=== PATIENT | female | born 1960 | race Caucasian/White ===

== ENCOUNTER 2021-07-06 19:45 | Inpatient (IN) | payer OTHER, SELFPAY ==
[2021-07-06] MEDS ORDERED: NA CHLORIDE 0.9% 2,000 ML ONE (20:14)
[2021-07-06] MEDS ORDERED: ONDANSETRON 4 MG/2 ML VIAL ONE (20:19)
[2021-07-06 20:43] LABS: Urine Blood 2+ (Negative); Urine Glucose Negative (Negative); Urine Protein 1+ (Negative); Urine Specific Gravity >=1.030 (1.005-1.030); Urine pH 5.5 (5.0-7.0)
[2021-07-06 20:43] LABS: Protime INR 0.94
[2021-07-06 20:44] LABS: Absolute Lymphocytes (CBC) 1.6 K/uL (0.7-4.9); Hematocrit 40.7 % (36.0-45.0); Lymphocytes % 24.1 % (15.3-44.8); MPV 10.7 fL (7.6-11.3); RBC Red Blood Cell Count 4.53 M/uL (3.86-4.86)
[2021-07-06 21:14] LABS: ALT/SGPT 31 U/L (12-78); AST/SGOT 57 U/L (15-37); Albumin 3.5 g/dL (3.4-5.0); Alkaline Phosphatase 121 U/L (45-117); Amylase 43 U/L (25-115); Bicarbonate 22 mmol/L (21-32); Bilirubin Direct < 0.1 mg/dL (0-0.2); Bilirubin Total 0.2 mg/dL (0.2-1.0); Creatine Phosphokinase 44 U/L (26-192); Glucose Level 181 mg/dL (74-106); Lipase 113 U/L (73-393); Potassium 3.4 mmol/L (3.5-5.1); Protein, Total 7.1 g/dL (6.4-8.2); Sodium Level 138 mmol/L (136-145); Troponin (Emerg Dept Use Only) < 0.02 ng/mL (0.0-0.045)
[2021-07-06 21:16] LABS: Urine Bacteria >50 /HPF (<20)
[2021-07-06 21:18] LABS: SARS-COV-2 RT PCR POSITIVE (NEGATIVE)
--- NOTE | 2021-07-06 21:19 | RAD REPORT ---
EXAM DESCRIPTION: RAD - Chest Single View - 07/06/2021 8:48 pm CLINICAL HISTORY: FEVER Chest pain. COMPARISON: No comparisons FINDINGS: Portable technique limits examination quality. Interstitial opacities are present, greater on the left, suspicious for a viral infection. The heart is upper limit of normal in size. No displaced fractures.
[2021-07-06 21:22] LABS: CKMB Creatine Kinase MB < 1.0 ng/mL (1.0-3.6)
--- NOTE | 2021-07-06 21:24 | RAD REPORT ---
EXAM DESCRIPTION: CT - Chest Angio - 07/06/2021 9:07 pm CLINICAL HISTORY: Chest pain. abd. pain;Chest pain COMPARISON: No comparisons TECHNIQUE: CT angiogram of the pulmonary arteries was performed with MIP. All CT scans are performed using dose optimization technique as appropriate and may include automated exposure control or mA/KV adjustment according to patient size. FINDINGS: No evidence of pulmonary thromboembolism. No acute aortic finding demonstrated. Mild interstitial pulmonary edema suspected. No significant pericardial or pleural fluid. No concerning bony finding. IMPRESSION: No evidence of pulmonary thromboembolism. Mild interstitial pulmonary edema suspected.
--- NOTE | 2021-07-06 21:29 | RAD REPORT ---
EXAM DESCRIPTION: CTAbdomen Pelvis W Contrast - 07/06/2021 9:07 pm CLINICAL HISTORY: Abdominal pain. ABD PAIN COMPARISON: No comparisons TECHNIQUE: Biphasic CT imaging of the abdomen and pelvis was performed with 100 ml non-ionic IV cont rast. All CT scans are performed using dose optimization technique as appropriate and may include automated exposure control or mA/KV adjustment according to patient size. FINDINGS: The lung bases are clear. The liver appears unremarkable without mass or biliary dilatation. There is slightly dense fluid seen in the left upper quadrant adjacent to the stomach, medial margin of the spleen superior to the pancreas. This extends inferiorly along the inferior anterior pararenal fascia and along the left pericolic gutter. Mild fluid is seen in the pelvis. The findings may be re lated to pancreatitis given the location. The spleen, adrenal glands kidneys show no acute process. No bowel obstruction, free air or abscess. Normal appendix. No suspicious bony findings. IMPRESSION: Acute pancreatitis is a possibility. Recommend correlation with amylase and lipase level s. Slightly dense fluid is seen predominately in the left upper quadrant extending inferiorly as detaile d above.
[2021-07-06 22:16] LABS: BUN Blood Urea Nitrogen 16 mg/dL (7-18)
[2021-07-06] MEDS ORDERED: POTASSIUM CL SA 10 MEQ TAB PO ONE (22:31)
[2021-07-06] MEDS ORDERED: NA CHLORIDE 0.9% 1,000 ML ONE (22:45)
[2021-07-06] MEDS ORDERED: KCL 20 MEQ/100 mL IVPB 100 ML IV ONE (22:46)
[2021-07-06] MEDS ORDERED: NA CHLORIDE 0.9% 100 ML ONE (23:09)
[2021-07-06] MEDS ORDERED: PIPERACIL/TAZO 3.375 GM VIAL IV ONE (23:09)
[2021-07-06 23:41] LABS: Absolute Lymphocytes (CBC) 0.5 K/uL (0.7-4.9); Hematocrit 34.8 % (36.0-45.0); Lymphocytes % 7.8 % (15.3-44.8); RBC Red Blood Cell Count 3.83 M/uL (3.86-4.86)
[2021-07-07] MEDS ORDERED: KETOROLAC 30 MG/ML INJ ONE (00:30)
--- NOTE | 2021-07-07 01:31 | CON ---
Date of Consultation: 07/06/2021 Reason For Consultation: Abdominal pain. History Of Present Illness: The patient is a 60-year-old female, who presents to the emergency room earlier today with acute onset of epigastric left upper quadrant pain. She states that it felt like something burst. She denies any nausea, vomiting, diarrhea, or constipation. No blood in her stool. No dysuria or hematuria. No sore throat. She does have a cough. No chest pain per se. She has h ad fever for a couple of days and she has been around the [email or web address] during the holidays and she was f ound to be COVID positive on admission. Her blood pressure dropped to systolic in the 70s and I was called to come and evaluate the patient. On arrival, the patient is awake, alert, not in any extreme distress at this time. Vital at this point are normal blood pressure. Her heart rate, there is no tachycardia, there is no hypertension. Sats are okay. She is able to communicate well. She is awak e, alert, and oriented x3. Review of Systems: Otherwise unremarkable. Past Medical History: Negative. Past Surgical History: Negative. Allergies: NO ALLERGIES. Social History: She denies smoking or drinking. She does state that she has been drinking some appl e cider over the holidays. Family History: Noncontributory. Physical Examination: Vital Signs: Her vitals currently are stable. She is afebrile. She is awake, alert, and oriented x 3. Head and Neck: Cranial nerves 2 through 12 grossly within normal limits. No neck masses. No JVD. Throat clear. Neck is supple. Chest: Clear. Heart: S1 and S2. Abdomen: Soft. There is tenderness in the left upper quadrant greater than left middle quadrant. T here is no rebound, rigidity, or guarding at this point. There is no distention. Extremity: Adequate perfusion, nontender. Neuro: Nonfocal. Laboratory Data: White count 6.5, H and H was 13.8 at 8 o'clock; at 11:35, it was 11.6 and 34.8 and she has received a couple units of fluids. Her neutrophil shift was normal on admission, is currentl y 85.7. INR is 0.94. Chemistry shows glucose of 181, AST of 57, alkaline phosphatase of 121, lactic acid of 1.7, and procalcitonin of 0.15. She had a chest x-ray, which shows interstitial opacities are present, greater on the left suspicious for viral infection. The heart is upper limits of normal in size. No displaced fracture. She also had a CT of the chest, abdomen, and pelvis. There is no dissection present. Description Of The Operative Report: In the description of the operative report and also talking to Dr. Alatorre, there is slight dense fluid seen in the left upper quadrant, not like bladder, but adjacen t to the stomach, medial margin of the spleen and superior to the pancreas and extends inferiorly chino ng the inferior and anterior pararenal fascia and along the left pericolic gutter and mild fluid is s een in the pelvis. These findings may be related to pancreatitis given the location. The spleen, ad renal glands, kidneys showed no acute process, no bowel obstruction, free air, or abscess. Normal ap pendix. The etiology of this fluid is unclear, but based on the clinical history, I suspect either a pancreatic cyst that may be leaking or a pseudocyst, I do not think there is bleeding from the splee n nor is there gastric perforation based on the clinical findings. Assessment: Abdominal pain, etiology is unclear at this time. Recommendations: We will continue to try to transfer this patient to a tertiary care facility; [facility], at this time beds are very limited, so therefore we will support her with fluids. We will repeat the labs, do serial abdominal exams, and if we cannot transfer this patient to tertiary care, then s he may benefit from a diagnostic laparoscopy and aspiration of the fluid to see what is causing this problem and then appropriately treat this patient. Plan of care was discussed in detail with Dr. Arenas as well as the patient and her family member. /MODL Voice ID: [id number] Report ID: [id number]
[2021-07-07] MEDS ORDERED: NA CHLORIDE 0.9% 1,000 ML ONE ×2 (01:44→17:36)
--- NOTE | 2021-07-07 02:05 | ER ---
Nurse's Notes [facility] Name: Shanna Alonzo Age: 60 yrs Sex: Female : 1960 Arrival Date: 07/06/2021 Time: 20:01 Bed 8 Private MD: Diagnosis: Covid 19 pneumonia. Fever. Acute abdominal pain. Fluids in abdominal Presentation: 07/06 20:49 Chief complaint: EMS states: called out for covid symptoms, upon arrival pt was as6 diaphoretic, lethargic, syncopal episode. Coronavirus screen: Vaccine status: Patient reports being unvaccinated. Client presents with at least one sign or symptom that may indicate coronavirus-19. Standard/surgical mask placed on the client. Ebola Screen: No symptoms or risks identified at this time. Initial Sepsis Screen: Does the patient meet any 2 criteria? RR > 20 per min. Temp <36.0*C (96.8*F)) or > 38.3*C (100.9*F). Does the patient have a suspected source of infection? No. Patient's initial sepsis screen is negative. Risk Assessment: Do you want to hurt yourself or someone else? Patient reports no desire to harm self or others. Onset of symptoms was July 03, 2021. 20:49 Method Of Arrival: EMS: [facility] as6 20:49 Acuity: GI 2 as6 Historical: - Allergies: 20:53 Codeine; as6 - Home Meds: 20:53 None [Active]; as6 - PMHx: 20:53 None; as6 - PSHx: 20:53 None; as6 - Immunization history:: Adult Immunizations not up to date. - Social history:: Smoking status: Patient denies any tobacco usage or history of. Screenin:19 Abuse screen: Denies threats or abuse. Denies injuries from another. Nutritional as6 screening: No deficits noted. Tuberculosis screening: No symptoms or risk factors identified. Fall Risk None identified. Assessment: 20:00 General: Appears ill, Behavior is drowsy. General: Reports chills for feeling ill for as6 fatigue for. Pain: Complains of pain in generalized body achaes. Neuro: Level of Consciousness is lethargic, Oriented to person, place, time, situation. Derm: Skin is clammy, diaphoretic, Skin is dusky, pale, Skin temperature is cool. 21:28 Reassessment: Patient and/or family updated on plan of care and expected duration. Pain as6 level reassessed. General: pt reports feeling cold, "I just don't feel good". 23:04 General: Appears uncomfortable, pt denies wanting any pain medication . as6 23:16 General: pt c/o feeling hot, blood pressure 63/54, Dr. Arenas notified . as6 07/07 00:00 GI: Abdomen has rebound tenderness in left upper quadrant and left lower quadrant. as6 00:56 General: pt resting, family at bedside . as6 Vital Signs: 07/06 20:09 BP 105 / 68; Pulse 63; Resp 16 S; Temp 97.6(O); Pulse Ox 96% on R/A; Weight 70.31 kg as6 (R); Height 4 ft. 11 in. (149.86 cm) (R); 21:18 BP 115 / 64; Pulse 69; Resp 24 S; Temp 97.1(C); Pulse Ox 100% on R/A; as6 22:20 BP 97 / 65; Pulse 78; Resp 24 S; Temp 97.7(C); Pulse Ox 98% on R/A; as6 23:16 BP 63 / 54; Pulse 62; Resp 27 S; Temp 98.2(C); Pulse Ox 98% on R/A; as6 23:40 BP 113 / 71; Pulse 71; Resp 21 S; Temp 98.6(C); Pulse Ox 99% on R/A; as6 07/07 00:55 BP 120 / 79; Pulse 72; Resp 22 S; Temp 99.0(C); Pulse Ox 98% on R/A; as6 02:35 BP 114 / 78; Pulse 85; Resp 20 S; Temp 99.1(C); Pulse Ox 98% on R/A; as6 07/06 20:09 Body Mass Index 31.31 (70.31 kg, 149.86 cm) as6 ED Course: 07/06 20:01 Patient arrived in ED. tracee 20:05 Reno Arenas MD is Attending Physician. pkl 20:06 Rodrigo Colon, NIC is Primary Nurse. as6 20:46 Blood Culture Sent. tracee 20:47 Amylase Sent. tracee 20:47 Basic Metabolic Panel Sent. tracee 20:47 Amylase, Serum Sent. tracee 20:47 Basic Metabolic Panel Sent. tracee 20:47 Blood Culture Adult (2) Sent. tracee 20:47 CBC with Diff Sent. tracee 20:47 CPK Sent. tracee 20:47 Ckmb Sent. tracee 20:47 LFT's Sent. tracee 20:47 Lipase Sent. tracee 20:47 Procalcitonin Sent. tracee 20:47 Troponin (emerg Dept Use Only) Sent. tracee 20:48 Chest Single View XRAY In Process Unspecified. EDMS 20:48 Urine Microscopic Only Sent. tracee 20:48 COVID-19/FLU A+B/RSV (Document "Date of Onset" if Symptomatic) Sent. tracee 20:52 Triage completed. as6 20:52 Arm band placed on. as6 21:05 Inserted saline lock: 18 gauge in right antecubital area, using aseptic technique. as6 Blood collected. Inserted saline lock: 18 gauge in left hand, using aseptic technique. Blood collected. 21:06 CT Abd/Pelvis - IV Contrast Only In Process Unspecified. EDMS 21:06 Tamayo cath inserted, using sterile technique, 16 Fr., by nm, balloon inflated, to as6 gravity drainage, urine specimen collected. Thermoregulation: warm blanket given to patient. heating blanket applied. 21:07 CT Chest Angio In Process Unspecified. EDMS 21:28 Placed in gown. Bed in low position. Call light in reach. Side rails up X2. Adult w/ as6 patient. library monitor on. Pulse ox on. NIBP on. Warm blanket given. 23:05 US Abdomen Limited In Process Unspecified. EDMS 07/07 01:16 Type And Screen Sent. tracee 01:[address] [facility] for transfer denial due to at capacity. Called [facility] denial due to cs9 at capacity. Called [facility] we were denied due to at [place]. 01:45 called [facility] denied due to at capacity. cs9 01:55 called [facility] denied due to at capacity. cs9 02:01 Aguila Roberts is Hospitalizing Provider. pkl 02:36 No provider procedures requiring assistance completed. Patient admitted, IV remains in as6 place. 07:37 Primary Nurse role handed off by Rodrigo Colon RN jl7 08:10 Anthony Bennett, RN is Primary Nurse. bp 12:28 Attending Physician role handed off by Reno Arenas MD jl7 12:28 Primary Nurse role handed off by Anthony Bennett RN jl7 12:29 Edu Duong, NIC is Primary Nurse. jl7 12:40 Primary Nurse role handed off by Edu Duong RN bp 12:40 Anthony Bennett, NIC is Primary Nurse. bp Administered Medications: 07/06 20:16 Drug: NS 0.9% (30 ml/kg) 30 ml/kg Route: IV; Rate: bolus; Site: right antecubital; as6 22:51 Follow up: Response: No adverse reaction; IV Status: Completed infusion; IV Intake: as6 2100ml 20:54 Not Given (Patient Refused): Zofran (Ondansetron) 4 mg IVP once; over 2 minutes as6 22:42 Not Given (Physician Discretion): K-Dur (potassium chloride) 20 mEq PO once as6 23:04 Drug: NS 0.9% 1000 ml Route: IV; Rate: 125 ml/hr; Site: right antecubital; as6 23:04 Drug: Potassium Chloride 10 mEq Route: IV; Rate: calculated rate; Site: right as6 antecubital; 23:30 Drug: Zosyn (piperacillin-tazobactam) 3.375 grams Route: IVPB; Infused Over: 60 mins; as6 Site: left hand; 07/07 00:40 Drug: Ketorolac 30 mg Route: IVP; Site: right antecubital; as6 Intake: 07/06 22:51 IV: 2100ml; Total: 2100ml. as6 Outcome: 07/07 02:04 Decision to Hospitalize by Provider. pkl 02:36 Admitted to ICU as6 02:36 Condition: stable 11:25 Patient left the ED. jl7 18:54 Patient left the ED. bp Signatures: Dispatcher [employer] EDMS Reno Arenas MD MD pkEdu Gallo, NIC LUCERO jl7 Anthony Bennett, RN NIC Martha Palacio 9 Rodrigo Colon, RN NIC as6 Chelsea Priest RN RN tracee
--- NOTE | 2021-07-07 02:05 | EDPHYS ---
[facility] Name: Shanna Alonzo Age: 60 yrs Sex: Female : 1960 Arrival Date: 07/06/2021 Time: 20:01 Bed 8 Private MD: ED Physician HPI: 07/06 20:13 This 60 yrs old Female presents to ER via Unassigned with complaints of Fever, Abd Pain pkl > 50 y/o. 20:13 The patient presents with abdominal pain that is diffuse. Onset: The symptoms/episode pkl began/occurred just prior to arrival, sudden onset. The symptoms do not radiate. Associated signs and symptoms: Pertinent positives: near syncope. The patient reports fever, with an emergency department temperature of 97.6 degrees Fahrenheit. Historical: - Allergies: 20:53 Codeine; as6 - Home Meds: 20:53 None [Active]; as6 - PMHx: 20:53 None; as6 - PSHx: 20:53 None; as6 - Immunization history:: Adult Immunizations not up to date. - Social history:: Smoking status: Patient denies any tobacco usage or history of. ROS: 20:13 Eyes: Negative for injury, pain, redness, and discharge, ENT: Negative for injury, pkl pain, and discharge, Neck: Negative for injury, pain, and swelling, Cardiovascular: Negative for chest pain, palpitations, and edema, Respiratory: Negative for shortness of breath, cough, wheezing, and pleuritic chest pain. 20:13 Abdomen/GI: Positive for abdominal pain, of the right upper quadrant, left upper quadrant, right lower quadrant and left lower quadrant, Negative for nausea, vomiting, and diarrhea. 20:13 Back: Negative for acute changes. 20:13 : Negative for urinary symptoms. 20:13 MS/extremity: Negative for acute changes. 20:13 Skin: Negative for rash. 20:13 Neuro: Positive for near syncope. Exam: 20:18 Head/Face: Normocephalic, atraumatic. Eyes: Pupils equal round and reactive to light, pkl extra-ocular motions intact. Lids and lashes normal. Conjunctiva and sclera are non-icteric and not injected. Cornea within normal limits. Periorbital areas with no swelling, redness, or edema. ENT: Nares patent. No nasal discharge, no septal abnormalities noted. Tympanic membranes are normal and external auditory canals are clear. Oropharynx with no redness, swelling, or masses, exudates, or evidence of obstruction, uvula midline. Mucous membranes moist. Neck: Trachea midline, no thyromegaly or masses palpated, and no cervical lymphadenopathy. Supple, full range of motion without nuchal rigidity, or vertebral point tenderness. No Meningismus. Chest/axilla: Normal chest wall appearance and motion. Nontender with no deformity. No lesions are appreciated. Cardiovascular: Regular rate and rhythm with a normal S1 and S2. No gallops, murmurs, or rubs. Normal PMI, no JVD. No pulse deficits. Respiratory: Lungs have equal breath sounds bilaterally, clear to auscultation and percussion. No rales, rhonchi or wheezes noted. No increased work of breathing, no retractions or nasal flaring. 20:18 Abdomen/GI: Bowel sounds: normal, Palpation: soft, mild abdominal tenderness, in all quadrants. 20:18 Back: Exam negative for acute changes. 20:18 : Exam negative for acute changes. 20:18 Musculoskeletal/extremity: Exam is negative for acute changes. 20:18 Skin: Exam negative for rash. 20:18 Neuro: Orientation: is normal, Mentation: is normal, Cranial nerves: grossly normal, Motor: is normal. Vital Signs: 20:09 BP 105 / 68; Pulse 63; Resp 16 S; Temp 97.6(O); Pulse Ox 96% on R/A; Weight 70.31 kg as6 (R); Height 4 ft. 11 in. (149.86 cm) (R); 21:18 BP 115 / 64; Pulse 69; Resp 24 S; Temp 97.1(C); Pulse Ox 100% on R/A; as6 22:20 BP 97 / 65; Pulse 78; Resp 24 S; Temp 97.7(C); Pulse Ox 98% on R/A; as6 23:16 BP 63 / 54; Pulse 62; Resp 27 S; Temp 98.2(C); Pulse Ox 98% on R/A; as6 23:40 BP 113 / 71; Pulse 71; Resp 21 S; Temp 98.6(C); Pulse Ox 99% on R/A; as6 1230 00:55 BP 120 / 79; Pulse 72; Resp 22 S; Temp 99.0(C); Pulse Ox 98% on R/A; as 02:35 BP 114 / 78; Pulse 85; Resp 20 S; Temp 99.1(C); Pulse Ox 98% on R/A; as6 07/06 20:09 Body Mass Index 31.31 (70.31 kg, 149.86 cm) as MDM: 07/06 20:05 Patient medically screened. pkl 22:09 Data reviewed: vital signs, nurses notes. pkl 22:55 ED course: Talked to Dr. Leiva, transfer to [facility]. pkl 23:28 ED course: Attempts to transfer patient to [facility] and other [facility] pk unsuccessful. Talked to Abbie Harris again, will come to ER to evaluate patient.. 07/07 01:28 Data reviewed: lab test result(s), EKG, radiologic studies, CT scan, plain films, pkl ultrasound. 01:53 ED course: Attempts made to transfer patient to [facility], [facility], [facility] and [facility] unsuccessful. . 02:10 ED course: Talked to Wade SLOAN ) Admit to ICU ( Dr. Roberts ). pk 07/06 20:05 Order name: COVID-19/FLU A+B/RSV (Document "Date of Onset" if Symptomatic); Complete dh4 Time: 22:03 07/06 20:07 Order name: Amylase, Serum pk 07/06 20:07 Order name: Basic Metabolic Panel pk 07/06 20:07 Order name: Blood Culture Adult (2) pk 07/06 20:07 Order name: CBC with Diff; Complete Time: 20:50 pkl 07/06 20:07 Order name: CPK; Complete Time: 00:00 pkl 07/06 20:07 Order name: Ckmb; Complete Time: 00:00 pkl 07/06 20:07 Order name: LFT's; Complete Time: 00:00 pkl 07/06 20:07 Order name: Lactate; Complete Time: 20:50 pkl 07/06 20:07 Order name: Lipase; Complete Time: 00:00 pkl 07/06 20:07 Order name: Procalcitonin; Complete Time: 22:03 pkl 07/06 20:07 Order name: Protime (+inr); Complete Time: 20:44 pkl 07/06 20:07 Order name: Ptt, Activated; Complete Time: 20:44 pkl 07/06 20:07 Order name: Troponin (emerg Dept Use Only); Complete Time: 00:00 pkl 07/06 20:07 Order name: Urine Microscopic Only; Complete Time: 22:03 pkl 07/06 20:08 Order name: Amylase; Complete Time: 00:00 EDMS 07/06 20:08 Order name: Basic Metabolic Panel; Complete Time: 00:00 EDMS 07/06 20:08 Order name: Blood Culture EDOH 07/06 20:18 Order name: Glucose, Ancillary Testing; Complete Time: 20:23 EDMS 07/06 20:42 Order name: Urine Dipstick-Ancillary; Complete Time: 20:44 EDMS 07/06 21:17 Order name: Urine Culture [facility] 07/06 21:22 Order name: CREATININE WHOLE BLOOD; Complete Time: 22:03 EDOH 07/06 23:25 Order name: CBC with Diff; Complete Time: 00:00 as6 07/07 00:47 Order name: Type And Screen 07/07 01:54 Order name: CBC with Diff [facility] 07/07 02:02 Order name: Antibody Identification [facility] 07/07 02:48 Order name: CBC with Automated Diff; Complete Time: 04:06 EDMS 07/07 04:07 Order name: Hemoglobin; Complete Time: 06:53 EDOH 07/07 04:07 Order name: Hematocrit; Complete Time: 06:53 EDOH 07/06 20:07 Order name: Chest Single View XRAY; Complete Time: 22:03 pkl 07/06 20:07 Order name: Accucheck; Complete Time: 20:19 pkl 07/06 20:07 Order name: Cardiac monitoring; Complete Time: 20:19 pkl 07/06 20:07 Order name: EKG - Nurse/Tech; Complete Time: 20:19 pkl 07/06 20:08 Order name: EKG; Complete Time: 20:08 pkl 07/06 20:13 Order name: CT Abd/Pelvis - IV Contrast Only pk 07/06 20:13 Order name: CT Chest Angio; Complete Time: 22:03 pkl 07/06 22:10 Order name: US Abdomen Limited pkl 07/07 02:21 Order name: CONS Physician Consult EDMS 07/07 04:30 Order name: Amylase; Complete Time: 06:53 EDMS 07/07 04:30 Order name: Lipase; Complete Time: 06:53 EDMS 07/07 06:54 Order name: CBC with Diff pkl 07/07 06:54 Order name: Lipase pkl 07/07 06:54 Order name: Amylase, Serum pkl 07/07 07:43 Order name: CBC with Automated Diff EDMS 07/07 07:51 Order name: Amylase EDMS 07/07 07:51 Order name: Lipase EDMS 07/07 08:17 Order name: Glucose, Ancillary Testing EDMS 07/07 12:52 Order name: Hemoglobin EDMS 07/07 12:52 Order name: Hematocrit EDMS 07/07 17:26 Order name: Hemoglobin EDMS 07/07 17:26 Order name: Hematocrit EDMS 07/07 18:11 Order name: Glucose, Ancillary Testing EDMS 07/07 18:24 Order name: Hemoglobin EDMS 07/07 18:24 Order name: Hematocrit EDMS 07/06 20:07 Order name: IV Saline Lock - Large Bore; Complete Time: 20:19 pkl 07/06 20:07 Order name: Labs collected and sent; Complete Time: 20:36 pkl 07/06 20:07 Order name: O2 Per Protocol; Complete Time: 20:19 pkl 07/06 20:07 Order name: O2 Sat Monitoring; Complete Time: 20:19 pkl 07/06 20:07 Order name: Urine Dipstick-Ancillary (obtain specimen); Complete Time: 20:49 pkl Administered Medications: 07/06 20:16 Drug: NS 0.9% (30 ml/kg) 30 ml/kg Route: IV; Rate: bolus; Site: right antecubital; as6 22:51 Follow up: Response: No adverse reaction; IV Status: Completed infusion; IV Intake: as6 2100ml 20:54 Not Given (Patient Refused): Zofran (Ondansetron) 4 mg IVP once; over 2 minutes as6 22:42 Not Given (Physician Discretion): K-Dur (potassium chloride) 20 mEq PO once as6 23:04 Drug: NS 0.9% 1000 ml Route: IV; Rate: 125 ml/hr; Site: right antecubital; as6 23:04 Drug: Potassium Chloride 10 mEq Route: IV; Rate: calculated rate; Site: right as6 antecubital; 23:30 Drug: Zosyn (piperacillin-tazobactam) 3.375 grams Route: IVPB; Infused Over: 60 mins; as6 Site: left hand; 07/07 00:40 Drug: Ketorolac 30 mg Route: IVP; Site: right antecubital; as6 Disposition Summary: 07/07/21 02:04 Hospitalization Ordered Provider: Aguila Roberts Condition: Stable pkl Problem: new pkl Symptoms: are unchanged pkl Bed/Room Type: Standard pkl Hospitalization Status: Inpatient Admission(07/07/21 02:09) pkl Location: [facility] ER HOLD(07/07/21 02:27) cg Room Assignment: ERHOLD-(07/07/21 02:27) cg Diagnosis - Covid 19 pneumonia. Fever. Acute abdominal pain. Fluids in abdominal pkl Forms: - Medication Reconciliation Form pkl - SBAR form pkl Signatures: Dispatcher [employer] EDOH Reno Arenas MD MD pkl Lesa Caldwell RN RN cg Rodrigo Colon RN RN as6 Corrections: (The following items were deleted from the chart) 07/06 20:13 20:13 CREATININE, SERUM+C.LAB.BRZ ordered. EDOH EDMS 07/07 02:09 02:04 Observation pkl pkl 02:09 02:04 Telemetry/MedSurg (observation) pkl pkl 02:09 02:04 pkl pkl 02:11 01:53 ED course: Talked to Wade SLOAN ) For observation ( Dr. Roberts ). pkl pkl 02:27 02:09 Intensive Care Unit pkl cg 02:27 02:09 pkl cg
[2021-07-07 02:46] LABS: Absolute Lymphocytes (CBC) 0.4 K/uL (0.7-4.9); Hematocrit 33.8 % (36.0-45.0); Lymphocytes % 7.6 % (15.3-44.8); RBC Red Blood Cell Count 3.74 M/uL (3.86-4.86)
--- NOTE | 2021-07-07 03:00 | P.HP ---
Certification for Inpatient Patient admitted to: Inpatient With expected LOS: <2 Midnights Patient will require the following post-hospital care: None Practitioner: I am a practitioner with admitting privileges, knowledge of patient current condition, hospital course, and medical plan of care. Services: Services provided to patient in accordance with Admission requirements found in Title 42 Section 412.3 of the Code of Federal Regulations Patient History Date of Service: 07/07/21 Reason for admission: epigastric pain History of Present Illness: Ms. Alonzo is a 60 yo F who presents with sudden onset 10/10 epigastric LUQ pain beginning at 8pm this evening. She says she felt like her normal self, when all of sudden, something 'burst' inside of her. She describes the pain as a bloated feeling, and is worse when she moves around. She feels as if she cannot get comfortable. Denies nausea, vomiting, diarrhea, constipation, melena, hematochezia. Found to be COVID+ in the ED. Attempt was made to transfer the patient to [place] but all facilities are currently at capacity. Surgery was consulted and plan is to hydrate with IV fluids, repeat labs, and follow serial abdominal exams. Plan for possible diagnostic laparoscopy and aspiration of the fluid in the morning. Suspicion for pancreatic cyst or psuedocyst. CTAP IMPRESSION: Acute pancreatitis is a possibility. Recommend correlation with amylase and lipase levels. Slightly dense fluid is seen predominately in the left upper quadrant extending inferiorly as detailed above. - Past Medical/Surgical History Diabetic: No Past Medical History: Patient denies medical history Past Surgical History: Patient denies surgical history - Family History Family History: Reviewed- Non-Contributory - Social History Alcohol use: No CD- Drugs: No Caffeine use: Yes Place of Residence: Home Review of Systems 10-point ROS is otherwise unremarkable General: Unremarkable Eyes: Unremarkable ENT: Unremarkable Respiratory: Unremarkable Cardiovascular: Unremarkable Gastrointestinal: Abdominal Pain Genitourinary: Unremarkable Musculoskeletal: Unremarkable Integumentary: Unremarkable Neurological: Unremarkable Lymphatics: Unremarkable Physical Examination - Physical Exam General: Alert, In no apparent distress HEENT: Atraumatic, PERRLA, Mucous membr. moist/pink, EOMI, Sclerae nonicteric Neck: Supple, 2+ carotid pulse no bruit, No LAD, Without JVD or thyroid abnormality Respiratory: Clear to auscultation bilaterally, Normal air movement Cardiovascular: Regular rate/rhythm, Normal S1 S2 Gastrointestinal: Normal bowel sounds, Soft and benign, Non-distended, Tenderness Musculoskeletal: No tenderness Integumentary: No rashes Neurological: Normal gait, Normal speech, Normal strength at 5/5 x4 extr, Normal tone, Normal affect Lymphatics: No axilla or inguinal lymphadenopathy - Studies Laboratory Data (last 24 hrs) 07/07/21 02:22: WBC 5.10 D, Hgb 11.2 L, Hct 33.8 L, Plt Count 197 07/06/21 23:35: WBC 6.40, Hgb 11.6 L, Hct 34.8 L, Plt Count 182 D 07/06/21 20:00: PT 10.8, INR 0.94, APTT 28.8 07/06/21 20:00: WBC 6.50, Hgb 13.8, Hct 40.7, Plt Count 233 07/06/21 20:00: Sodium 138, Potassium 3.4 L, BUN 16, Creatinine 1.17, Glucose 181 H, Total Bilirubin 0.2, AST 57 H, ALT 31, Alkaline Phosphatase 121 H, Amylase 43, Lipase 113 Assessment and Plan - Problems (Diagnosis) (1) COVID Current Visit: Yes Status: Acute (2) Epigastric abdominal pain Current Visit: Yes Status: Acute - Plan surgery consulted NPO serial hemoglobin and hematocrit continue IV fluids and IV zosyn amylase and lipase pending antiemetics and pain management as needed potassium replacement DVT ppx Discharge Plan: Home Plan to discharge in: 24 Hours - Advance Directives Does patient have a Living Will: No Does patient have a Durable POA for Healthcare: No - Code Status/Comfort Care Code Status Assessed: Yes (full code ) Critical Care: No Time Spent Managing Pts Care (In Minutes): 70
[2021-07-07 03:11] VITALS: BMI 32.3
[2021-07-07] MEDS ORDERED: NA CHLORIDE 0.9% 250 ML IV PRN (03:20)
[2021-07-07] MEDS ORDERED: ONDANSETRON 4 MG/2 ML VIAL IV PRN (03:20)
[2021-07-07] MEDS: NA CHLORIDE 0.9% 1,000 ML IV SCH ×2 (03:20→23:20)
[2021-07-07 04:03] LABS: Hematocrit 32.4 % (36.0-45.0)
[2021-07-07 04:30] LABS: Amylase 35 U/L (25-115); Lipase 72 U/L (73-393)
[2021-07-07] MEDS: INSULIN -REGULAR HUMAN 50 UNIT/0.5 ML ML SQ SCH ×3 (06:00→20:01)
[2021-07-07 07:40] LABS: Absolute Lymphocytes (CBC) 0.8 K/uL (0.7-4.9); Hematocrit 33.2 % (36.0-45.0); Lymphocytes % 17.6 % (15.3-44.8); RBC Red Blood Cell Count 3.65 M/uL (3.86-4.86)
[2021-07-07 07:51] LABS: Amylase 34 U/L (25-115); Lipase 86 U/L (73-393)
[2021-07-07] MEDS ORDERED: ACETAMINOPHEN 325 MG TABLET PO PRN (08:29)
[2021-07-07] MEDS ORDERED: HYDROMORPHONE HCL 0.5 MG/0.5 ML INJ IV PRN (08:29)
[2021-07-07] MEDS ORDERED: CEPACOL LOZENGES PO PRN (08:29)
[2021-07-07] MEDS ORDERED: INFLUENZA VACCINE (for 6+ mo) 0.5 ML DOSE IMVAC ONE (09:00)
[2021-07-07] MEDS ORDERED: HYDROMORPHONE HCL 2 MG/ML inj ONE (09:05)
[2021-07-07] MEDS ORDERED: LIDOCAINE 1% MPF 5 ML VIAL ONE (09:33)
[2021-07-07] MEDS ORDERED: FENTANYL CITR 250 MCG/5 ML ONE (09:33)
[2021-07-07] MEDS ORDERED: propofoL 200 MG/20 ML VIAL IV ONE (09:33)
[2021-07-07] MEDS ORDERED: MIDAZOLAM HCL 2 MG/2 ML INJ ONE (09:33)
[2021-07-07] MEDS ORDERED: ONDANSETRON 4 MG/2 ML VIAL ONE (09:34)
[2021-07-07] MEDS ORDERED: ROCURONIUM 50 MG/5 ML VIAL IV ONE (09:34)
[2021-07-07] MEDS ORDERED: NA CHLORIDE 0.9% 100 ML ONE (09:47)
[2021-07-07] MEDS ORDERED: PIPERACIL/TAZO 3.375 GM VIAL IV ONE (09:47)
--- NOTE | 2021-07-07 09:50 | RAD REPORT ---
EXAM DESCRIPTION: US - Abdomen Exam Limited - 07/06/2021 11:05 pm CLINICAL HISTORY: ABD PAIN COMPARISON: Abdomen Pelvis W Contrast dated 07/06/2021 FINDINGS: The gallbladder demonstrates no gallstones. No pericholecystic fluid or gallbladder wall t hickening. The common bile duct is normal measuring 6 mm. The liver demonstrates no findings of intrahepatic biliary dilatation. Mild fluid is seen in Morison' s pouch. IMPRESSION: Negative gallbladder/ biliary tree findings.
[2021-07-07] MEDS ORDERED: Ringers Lactate 1,000 ML IV ONE ×2 (09:55→11:01)
[2021-07-07] MEDS ORDERED: Phenylephrine HCl 10 MG/ML 1 ML VIAL ONE (10:37)
[2021-07-07] MEDS: BUPIVACAINE 0.5% Inj,MDV 50 mL VIAL ONE ×2 (10:40→10:45)
[2021-07-07] MEDS ORDERED: dexAMETHasone 10 MG/ML VIAL ONE (10:44)
[2021-07-07] MEDS ORDERED: NEOSTIGMINE 1 MG/ML -5 ML ONE (11:26)
[2021-07-07] MEDS ORDERED: GLYCOPYRROLATE 0.2 MG/ML SYR ONE (11:26)
--- NOTE | 2021-07-07 11:40 | P.OP ---
Automotive Electrical Helper: Shlomo BETTS Preoperative diagnosis: Abdominal Pain, Peritoneal Fluid, COVID Positive Postoperative diagnosis: same, Hemoperitoneum Primary procedure: Diagnostic Laparoscopy, Evacuation of Hemoperitonrum Anesthesia: General Estimated blood loss: min Specimen: Blood for cytology Findings: as above Complications: None Transferred to: Recovery Room Condition: Good
[2021-07-07] MEDS ORDERED: HYDROCODONE/APAP 7.5/325 MG TAB PO PRN (11:57)
[2021-07-07] MEDS ORDERED: PIPER TAZO 3.375 GM in NA CHLORIDE 0.9% 100 ML IV SCH (12:00)
[2021-07-07] MEDS: MEPERIDINE HCL 25 MG/ML SYR ONE ×2 (12:24→12:33)
--- NOTE | 2021-07-07 12:38 | OP ---
Surgeon: Dennis Leiva MD Clay Worker: ROXANE Davis Preoperative Diagnosis: Abdominal pain and abdominal peritoneal fluid. Postoperative Diagnosis: Abdominal pain and abdominal peritoneal fluid with hemoperitoneum. Procedures Performed: Diagnostic laparoscopy, evacuation of hemoperitoneum. Estimated Blood Loss: Minimal. Specimen: Blood for cytology. Anesthesia: General. Complications: None. Disposition: The patient tolerated the procedure in stable condition and taken to Recovery in good general condition. Brief History: The patient is a 60-year-old female, who was admitted earlier today with abdominal pain and abdominal peritoneal fluid. She had 1 episode of her H and H dropped initially after IV fluids were given and appeared to be delusional and she had a CAT scan for the abdominal pain and revealed some dense fluid present in the left upper quadrant going down into the pelvis. The etiology was unclear. The patient was symptomatic this morning, tender and still complaining of pain and slight increase in abdominal swelling, so informed consent was obtained for diagnostic laparoscopy, possible open to diagnose what was causing this fluid to be in the abdomen. The patient understood risks, benefits, and alternatives, and agrees to the procedure. Procedure In Detail: The patient was brought to the OR and placed in supine position. General anesthesia begun. The patient was prepped and draped in the usual sterile fashion. Marcaine 0.5% was infiltrated locally. Then, a 15 blade was used to make a 1 cm infraumbilical midline incision. Subcutaneous tissue divided. Fascia identified and divided. A #1 Vicryl stay suture was placed. Peritoneal cavity entered with sharp and blunt dissection. A 12 mm trocar was placed into the peritoneal cavity under direct vision. Pneumoperitoneum was established and then, two 5 mm trocars were placed, 1 in the right upper quadrant and 1 in the left upper quadrant and 1 in the left lower quadrant. Laparoscopy revealed clots and old blood in the right upper quadrant and left upper quadrant and pelvis and a little bit in the pericolic gutters. All the clots were removed as well as the old blood that was present. The etiology of this most likely is a splenic artery pseudoaneurysm or aneurysm that may have burst and sealed itself off. I did not explore the area of splenic artery as I felt that exploring this may initiate further bleeding and we would be unable to salvage the spleen as the patient was clinically very stable and there was no evidence of any bright red blood seen, so there was no evidence of any active bleeding both clinically and radiographically via the blood work that was being checked, so I felt that bleeding would be prudent to at this time terminate the procedure and have Interventional Radiology or Vascular surgeon to evaluate this patient for angiogram and possible embolization or stent placement, if she does indeed have a splenic artery aneurysm or pseudoaneurysm. At this time, the uterus, ovaries and tubes were examined. There was no evidence of cyst or any bleeding from there. Small intestine and large intestine were all within normal limits. Stomach was within normal limits. The liver was within normal limits. There was no other obvious source of bleeding identified. Subsequently, all trocars were removed under direct vision. Stay sutures were tied to each other to approximate the fascial defect. Subcutaneous wounds irrigated. Bleeding controlled with cautery. A 3-0 chromic used to approximate the subcutaneous tissue and close the skin. Please note, the findings were discussed with the radiologist intraoperatively as well. Sterile dressing was applied. The patient was awakened and taken to Recovery in good general condition. JAYRO/WAI Voice ID: [id number] Report ID: [id number] MTDD
[2021-07-07] MEDS: CEPACOL LOZENGES PO PRN ×2 (12:40→19:44)
[2021-07-07 12:45] LABS: Hematocrit 35.4 % (36.0-45.0)
--- NOTE | 2021-07-07 16:55 | P.PN ---
Date of Service: 07/07/21 Patient seen and examined. She is complaining of exhaustion. Status post laparoscopic exploration. Hemoperitoneum noted and evacuated. Vitals are currently stable. Hemoglobin dropped from 13 to 10 and currently stable at 10. Patient denies any abdominal pain at this time. I called [facility] and spoke to a vascular surgeon who recommended transfer for further imaging and intervention as needed. Transfer to [facility] is initiated. Dr. Leiva is aware. Awaiting for bed availability for transfer. Continue to monitor H&H every 4 hours and vitals.
[2021-07-07 17:23] LABS: Hematocrit 34.5 % (36.0-45.0)
[2021-07-07 18:21] LABS: Hematocrit 34.7 % (36.0-45.0)
[2021-07-07] MEDS: PIPER TAZO 3.375 GM in NA CHLORIDE 0.9% 100 ML IV SCH (19:42)
[2021-07-07] MEDS: HYDROMORPHONE HCL 1 MG/ML INJ IV PRN (19:44)
[2021-07-08 00:47] LABS: Hematocrit 31.2 % (36.0-45.0)
[2021-07-08] MEDS: PIPER TAZO 3.375 GM in NA CHLORIDE 0.9% 100 ML IV SCH ×3 (02:22→16:49)
[2021-07-08] MEDS: NA CHLORIDE 0.9% 1,000 ML IV SCH ×4 (04:48→23:28)
[2021-07-08] MEDS: INSULIN -REGULAR HUMAN 50 UNIT/0.5 ML ML SQ SCH ×4 (06:00→16:48)
[2021-07-08 06:31] LABS: Absolute Lymphocytes (CBC) 0.7 K/uL (0.7-4.9); Hematocrit 30.3 % (36.0-45.0); Lymphocytes % 12.4 % (15.3-44.8); MPV 10.7 fL (7.6-11.3); RBC Red Blood Cell Count 3.35 M/uL (3.86-4.86)
[2021-07-08 06:54] LABS: ALT/SGPT 24 U/L (12-78); AST/SGOT 36 U/L (15-37); Albumin 2.7 g/dL (3.4-5.0); Alkaline Phosphatase 72 U/L (45-117); BUN Blood Urea Nitrogen 7 mg/dL (7-18); Bicarbonate 28 mmol/L (21-32); Bilirubin Total 0.3 mg/dL (0.2-1.0); Glucose Level 106 mg/dL (74-106); HDL Cholesterol 76 mg/dL (40-60); LDL Cholesterol, Calculated 63 (<130); Phosphorus 2.3 mg/dL (2.5-4.9); Potassium 3.4 mmol/L (3.5-5.1); Sodium Level 141 mmol/L (136-145); Thyroid Stimulating Hormone 0.241 uIU/mL (0.360-3.740)
[2021-07-08] MEDS ORDERED: POTASSIUM CL SA 10 MEQ TAB PO ONE ×2 (08:00→16:00)
[2021-07-08] MEDS: POTASS/SODIUM PHOSPHATE 1 PKT POWD.PACK PO SCH ×3 (08:04→11:47)
--- NOTE | 2021-07-08 10:14 | PN ---
Date of Progress Note: 07/08/2021 Subjective: The patient is awake, alert, tolerating clear liquids. Pain is controlled. Objective: Vital Signs: Vitals are stable. She is afebrile. She is not tachycardic or hypotensive . Abdomen: Dressing is clean dry and intact. Soft, nondistended. Positive bowel sounds. Minimal inc isional tenderness. Laboratory Data: Reviewed. Her H and H have gone down to about 10.5 at midnight and 10.1 this morni ng. Post surgery were around 11.5 and 35.4. Assessment: Diagnostic laparoscopy, evacuation of hemoperitoneum. Plan: I re-evaluated the CT with another radiologist today and it appears that there may be some mike dence of bleeding in the left adnexa. However, during laparoscopy I did examine that area carefully and there was no active bleeding noted and the scan was done 12 hours prior to surgical intervention. Therefore in my opinion and the radiologist's opinion the bleeding had stopped. However, I think w e need to still continue to monitor her for least another 24 hours and we will repeat a CT of the abd omen and pelvis with IV contrast to make sure the patient does not have any active bleeding. Should that be stable and her H and H stable and clinically she continues to improve, I anticipate possible discharge tomorrow or Sunday. Plan of care was discussed in detail with Dr. Roebrts, the radiologist, and the patient. /MODL Voice ID: [id number] Report ID: [id number]
[2021-07-08 14:36] LABS: Hematocrit 28.6 % (36.0-45.0)
[2021-07-08] MEDS: HYDROMORPHONE HCL 1 MG/ML INJ IV PRN ×2 (16:01→23:10)
--- NOTE | 2021-07-08 16:28 | P.PN ---
Subjective Date of Service: 07/08/21 Chief Complaint: epigastric pain Patient reports abdominal discomfort. Hemoglobin has been stable with monitoring. Physical Examination - Vital Signs Temperature: 97.6 F Blood Pressure: 141/77 Pulse: 84 Respirations: 18 Pulse Ox (%): 97 - Physical Exam General: Alert, In no apparent distress, Oriented x3 HEENT: Mucous membr. moist/pink Neck: Supple, JVD not distended Respiratory: Clear to auscultation bilaterally, Normal air movement Cardiovascular: No edema, Regular rate/rhythm, Normal S1 S2, No murmurs Gastrointestinal: Normal bowel sounds, Soft and benign, Non-distended, No tenderness Musculoskeletal: No swelling Integumentary: No rashes Neurological: Normal strength at 5/5 x4 extr Assessment And Plan - Current Problems (Diagnosis) (1) Hemoperitoneum Current Visit: Yes Status: Acute (2) COVID Current Visit: Yes Status: Acute (3) Acute blood loss anemia Current Visit: Yes Status: Acute - Plan Case discussed with general surgery-Dr. Leiva. Dr. Leiva suspect bleeding originating from the pelvis and possibility of ovarian cyst rupture. Patient not actively bleeding at the moment, no abdominal distention or acute abdomen and no more drop in blood pressure. Hemoglobin dropped during the active bleed to 10 and now stable around 10. Plan is to repeat CTA abdomen and pelvis to evaluate for active bleed. It may also demonstrate the source of the bleed if there is any active bleeding. I spoke to vascular surgeon at [facility] yesterday. Transfer initiated but no bed is available. Patient will be transferred for vascular surgeons evaluation once a bed becomes available. Continue to monitor H&H. Serial abdominal examination. Monitor vitals closely. Pain management as needed. Patient is asymptomatic from the Covid.
[2021-07-08 22:15] LABS: Hematocrit 29.6 % (36.0-45.0)
[2021-07-08] MEDS: ONDANSETRON 4 MG/2 ML VIAL IV PRN (23:13)
[2021-07-09] MEDS: PIPER TAZO 3.375 GM in NA CHLORIDE 0.9% 100 ML IV SCH ×3 (01:36→16:51)
[2021-07-09] MEDS ORDERED: ACETAMINOPHEN 500 MG TAB PO PRN (02:25)
[2021-07-09] MEDS ORDERED: ACETAMINOPHEN 500 MG TAB PO ONE (02:25)
[2021-07-09] MEDS: ONDANSETRON 4 MG/2 ML VIAL IV PRN ×2 (05:16→12:00)
[2021-07-09] MEDS: HYDROMORPHONE HCL 1 MG/ML INJ IV PRN (05:16)
[2021-07-09 05:17] LABS: Hematocrit 29.9 % (36.0-45.0)
[2021-07-09 05:29] LABS: BUN Blood Urea Nitrogen 7 mg/dL (7-18); Bicarbonate 28 mmol/L (21-32); Glucose Level 85 mg/dL (74-106); Magnesium 2.1 mg/dL (1.8-2.4); Phosphorus 1.9 mg/dL (2.5-4.9); Potassium 3.8 mmol/L (3.5-5.1); Sodium Level 140 mmol/L (136-145)
[2021-07-09] MEDS: INSULIN -REGULAR HUMAN 50 UNIT/0.5 ML ML SQ SCH ×4 (06:00→18:00)
[2021-07-09 10:07] VITALS: O2SAT 95
--- NOTE | 2021-07-09 10:21 | PN ---
Date of Progress Note: 07/09/2021 Subjective: The patient has headache right now and history of migraines and is nauseous from the hea dache. Her abdomen feels fine. She was tolerating her liquids fine, but she does not want to eat an ything right now because of the headache. Objective: Vital Signs: Stable. She is afebrile. Abdomen: Benign. Laboratory Data: Her H and H are stable. Last one was 9.9 and 29.9. Assessment: Status post diagnostic laparoscopy and evacuation of hemoperitoneum. Recommendations: Medical management for the headache and then we would get a CT angio of the abdomen and pelvis. If the patient does not have any evidence of active bleeding, she can be discharged neelam e. Follow up with me as an outpatient in 1 week and we can try to arrange for the patient to have a mesenteric angiogram as an outpatient. JAYRO/WAI Voice ID: [id number] Report ID: [id number]
[2021-07-09] MEDS: SUMATRIPTAN SUCCI 50 MG TAB PO PRN ×2 (10:44→12:32)
--- NOTE | 2021-07-09 11:04 | RAD REPORT ---
EXAM DESCRIPTION: CT - Abdomen Angio - 07/09/2021 10:01 am CLINICAL HISTORY: Septic, COVID positive, hemoperitoneum, possible splenic artery aneurysm rupture COMPARISON: None. TECHNIQUE: Dynamically enhanced 3 mm thick images of the abdomen were obtained during administration of approximately 150mL Isovue 370 IV contrast. Sagittal and coronal reconstruction images were gener ated using MIP and reviewed. Exam utilizes a protocol to evaluate entire course of the abdominal and pelvic arterial tree. All CT scans are performed using dose optimization technique as appropriate and may include automated exposure control or mA/KV adjustment according to patient size. FINDINGS: Aorta is normal in diameter with no dissection or other acute aortic findings. Reconstruct ion images show no significant findings. Iliac vasculature also unremarkable. Celiac artery and branches show no aneurysm, extravasation for acute finding. Specifically, there is no evidence for a splenic artery vascular malformation as a source for the left upper quadrant hemato ma. Superior mesenteric artery and branches are unremarkable. Inferior mesenteric artery is patent. Singl e renal artery supply each kidney in show no abnormality. Spleen shows no evidence for laceration or rupture. No liver abnormality seen. The stranding and brandy colette changes in the left upper quadrant and peripancreatic tail region shows no evidence for growth. No active extravasation into the hematoma is identifiable. In the left lower quadrant around the gona melody vasculature the hematoma has not changed in size. There is no active arterial extravasation and n o evidence for a vascular malformation or collapsed aneurysm. Blood surrounds tortuous left gonadal v ein with no vein thrombosis. Urinary bladder is contracted around a Tamayo catheter. Uterus and ovaries show no suspicious findings . Periumbilical air is related to laparoscopic procedure performed since the study the - e subcutaneous fatty tissue air may have dissected from the laparoscopic procedure or is related to m edication injection. IMPRESSION: No splenic artery aneurysm, vascular malformation or evidence for vascular rupture. Ther e is no active extravasation in the left upper quadrant. The left upper quadrant and peripancreatic hematoma and stranding of the fatty tissues unchanged from July 06. Left lower quadrant fluid in hematoma also unchanged in size. There is no evidence for active extrava sation. No aneurysm, vascular malformation identified. No gonadal vein thrombosis or evidence for kelli ous side rupture.
--- NOTE | 2021-07-09 11:05 | RAD REPORT ---
EXAM DESCRIPTION: CT - Pelvis Angio - 07/09/2021 10:01 am CLINICAL HISTORY: POSSIBLE ANEURSYMleft upper quadrant and left lower quadrant COMPARISON: CT study July 06 TECHNIQUE: Dynamically enhanced 3 mm thick images of the pelvis were obtained during administration of approximately 150mL Isovue 370 IV contrast. Sagittal and coronal reconstruction images were genera myron using MIP and reviewed. Exam utilizes a protocol to evaluate entire course of the aorta. All CT scans are performed using dose optimization technique as appropriate and may include automated exposure control or mA/KV adjustment according to patient size. FINDINGS: The CT angio pelvis findings are incorporated into the CT angio abdomen report. IMPRESSION: Please see CT angio abdomen report for combined findings from the CTA abdomen and pelvis procedures.
[2021-07-09 14:14] LABS: Hematocrit 33.1 % (36.0-45.0)
[2021-07-09 16:24] VITALS: TEMP 98.6
--- NOTE | 2021-07-09 18:36 | P.DS ---
Admission Date: 07/07/21 Discharge Date: 07/09/21 Disposition: ROUTINE DISCHARGE Discharge Condition: FAIR Reason for Admission: epigastric pain - Problems (1) Hemoperitoneum Current Visit: Yes Status: Acute (2) COVID Current Visit: Yes Status: Acute (3) Acute blood loss anemia Current Visit: Yes Status: Acute Brief History of Present Illness: Ms. Alonzo is a 60 yo F who presents with sudden onset 10/10 epigastric LUQ pain beginning at 8pm this evening. She says she felt like her normal self, when all of sudden, something 'burst' inside of her. She describes the pain as a bloated feeling, and is worse when she moves around. She denied nausea, vomiting, diarrhea, constipation, melena, hematochezia. Found to be COVID+ in the ED. CT abdomen reported dense fluid found in the pancreatic bed between the stomach spleen and pancreas. Ruptured pancreatic pseudocyst suspected. An attempt was made to transfer the patient to [place] but all facilities were at capacity. Surgery-Dr. Leiva was consulted who was considering diagnostic laparoscopy and recommended admit to the hospitalist service for IV hydration and a laparoscopy. Hospital Course: Patient admitted to the intensive care unit for close monitoring. Her blood pressure apparently dropped on the night of admission and was evaluated by Dr. Leiva in the ED. diagnostic laparoscopy was performed and patient noted to have hemoperitoneum. Dr. Leiva suspect bleeding originating from the pelvis and possibility of ovarian cyst rupture. About 250 mils of blood clot was evacuated. Patient hemoglobin dropped from 13 to 11 and stabilized. Hemoglobin has been stable, no abdominal distention or acute abdomen and no more drop in blood pressure. Abdominal examination today is benign Repeat CTA abdomen and pelvis to evaluate did not show any extravasation of blood. I spoke to vascular surgeon at [facility] but an attempt to transfer her to [facility] was unsuccessful due to the unavailability. Patient deemed stable for discharge per Dr. Leiva. He will follow with her in the office within 2 to 3 days. Patient has also been informed that she will need to see a vascular surgeon. I spoke to the sister who is also considering the option of taking her to [facility] ED or [facility] ED. Patient is asymptomatic from the Covid. She experienced migraine headaches today which was managed with Excedrin and Imitrex. Patient is discharged to follow with Dr. Leiva within 2 to 3 days as arranged. Vital Signs/Physical Exam: Temp Pulse Resp BP Pulse Ox 98.6 F 82 17 152/92 H 95 07/09/21 16:00 07/09/21 17:00 07/09/21 17:00 07/09/21 17:00 07/09/21 14:00 General: Alert, In no apparent distress, Oriented x3 HEENT: Mucous membr. moist/pink, Sclerae nonicteric Neck: Supple, JVD not distended Respiratory: Clear to auscultation bilaterally, Normal air movement Cardiovascular: No edema, Regular rate/rhythm, Normal S1 S2 Capillary refill: <2 Seconds Gastrointestinal: Soft and benign, Non-distended, No tenderness, Other (Laparoscopic wounds clean) Musculoskeletal: No swelling, No tenderness Integumentary: No rashes, No erythema, No cyanosis Neurological: Normal speech, Normal strength at 5/5 x4 extr, Cranial nerves 3-12 intact Laboratory Data at Discharge: WBC 6.00 K/uL (4.3-10.9) D 07/08/21 06:13 Hgb 11.1 g/dL (12.0-15.0) L 07/09/21 14:00 Hct 33.1 % (36.0-45.0) L 07/09/21 14:00 Plt Count 191 K/uL (152-406) 07/08/21 06:13 PT 10.8 SECONDS (9.5-12.5) 07/06/21 20:00 INR 0.94 07/06/21 20:00 APTT 28.8 SECONDS (24.3-36.9) 07/06/21 20:00 Sodium 140 mmol/L (136-145) 07/09/21 05:01 Potassium 3.8 mmol/L (3.5-5.1) 07/09/21 05:01 BUN 7 mg/dL (7-18) 07/09/21 05:01 Creatinine 0.46 mg/dL (0.55-1.3) L 07/09/21 05:01 Glucose 85 mg/dL (74-106) 07/09/21 05:01 Phosphorus 1.9 mg/dL (2.5-4.9) L 07/09/21 05:01 Magnesium 2.1 mg/dL (1.8-2.4) 07/09/21 05:01 Total Bilirubin 0.3 mg/dL (0.2-1.0) 07/08/21 06:13 AST 36 U/L (15-37) 07/08/21 06:13 ALT 24 U/L (12-78) 07/08/21 06:13 Alkaline Phosphatase 72 U/L (45-117) 07/08/21 06:13 Triglycerides 84 mg/dL (<150) 07/08/21 06:13 Cholesterol 156 mg/dL (<200) 07/08/21 06:13 HDL Cholesterol 76 mg/dL (40-60) H 07/08/21 06:13 Cholesterol/HDL Ratio 2.05 07/08/21 06:13 Amylase 34 U/L (25-115) 07/07/21 07:25 Lipase 86 U/L (73-393) 07/07/21 07:25 Home Medications: Amox/Clavulanate [Augmentin 875-125 Tab] 1 each PO BID #14 tab 07/09/21 Aspirin/Acetaminophen/Caffeine [Excedrin Migraine Caplet] 2 each PO Q6H PRN 07/09/21 Hydrocodone 5/APAP 325 [[place] 5/325] 1 tab PO Q6H PRN #20 tab 07/09/21 Sumatriptan [Imitrex*] 25 mg PO PRN PRN #4 tab 07/09/21 New Medications: Amox/Clavulanate [Augmentin 875-125 Tab] 1 each PO BID #14 tab Sumatriptan [Imitrex*] 25 mg PO PRN PRN #4 tab PRN Reason: MIGRAINE HEADACHE Hydrocodone 5/APAP 325 [[place] 5/325] 1 tab PO Q6H PRN #20 tab PRN Reason: Pain Physician Discharge Instructions: Please return to the emergency department should you experience increased abdomi nal pain or abdominal distention or dizziness that may indicate low blood pressure. Diet: Regular Activity: Ad cristina Followup: Dennis Leiva MD [ACTIVE - CAN ADMIT] - 2-3 Days Unknown,U [Primary Care Provider] - Time spent managing pt's care (in minutes): 42
[2021-07-09 18:57] VITALS: BP 152/84
== END 2021-07-09 19:40 | disposition home or self-care (01) | DRG 356 ==
LOC: ER 19:45 → ERHOLD 07-07 02:24 → 3RD-ICU 07-07 17:31
PROVIDERS: ADMIT Internal Medicine; ATTEND Internal Medicine
PROC: 0WCG4ZZ Extirpation of Matter from Peritoneal Cavity, Percutaneous Endoscopic Approach (ICD-10-PCS; principal; 2021-07-08)
DX: K66.1 Hemoperitoneum (principal); U07.1 COVID-19; J12.82 Pneumonia due to coronavirus disease 2019; R18.8 Other ascites; D62 Acute posthemorrhagic anemia; R10.13 Epigastric pain; Z79.82 Long term (current) use of aspirin; Z79.899 Other long term (current) drug therapy
CPT/HCPCS: 0241U; 36415; 51702; 71045; 71275; 72191; 74175; 74177; 76705; 80048; 80053; 80061; 80076; 81003; 81015; 82150; 82550; 82553; 82565; 82947; 83605; 83690; 83735; 84100; 84132; 84145; 84439; 84443; 84484; 85014; 85018; 85025; 85610; 85730; 86850; 86870; 86880; 86900; 86901; 87040; 87086; 87088; 88108; 88305; 93005; 94010; 99285; J1100; J1170; J2175; J2250; J2370; J2405; J2543; J2704; J2710; J3010; J3480; J7030; J7120; Q9967

== ENCOUNTER 2021-07-19 16:22 | Emergency (ER) | payer SELFPAY ==
--- OUTSIDE RECORDS SUMMARY | 2021-07-19 16:24 | XMS REPORT | Continuity of Care Document ---
:1960 Author Organization [facility] t Address [address] [place] [address] Care Team Providers Name Role Phone AYDEN Attending Clinician Unavailable NUSZEN Attending Clinician Unavailable ANNSDO RYLAND A. Attending Clinician Unavailable AYDEN Admitting Clinician Unavailable DO SANDY A. Admitting Clinician Unavailable Problems This patient has no known problems. Allergies, Adverse Reactions, Alerts This patient has no known allergies or adverse reactions. Medications This patient has no known medications. Procedures This patient has no known procedures. Encounters Start End Encounter Admission Attending Care Care Encounter Source Date/Time Date/Time Type Type Clinicians Facility Department ID 2021-07-09 2021-07-13 Inpatient [facility] 064 [id number] [place] 00:00:00 00:00:00 KODAVAYOUR 293 [facility] 2021-07-10 2021-07-10 Emergency [facility] [id number] [place] 00:00:00 00:00:00 GWYN 017 Method i 2021-07-10 2021-07-10 [facility] [id number] [place] 00:00:00 00:00:00 GWYN [address] 2021-07-10 2021-07-10 [facility] [id number] 17 [place] 00:00:00 00:00:00 GWYN [address] 2021-07-10 2021-07-10 [facility] [id number] 17 [place] 00:00:00 00:00:00 GWYN Lui [facility] Results Test Description Test Time Test Comments Results Result Comments Source SARS-CoV-2 (COVID-19) RNA [Presence] in Respiratory sp ecimen by 2021-07-10 06:35:20 DEANNA with probe detection Test Item Value Reference Range Interpretation Comme nts SARS-CoV-2 (COVID-19) RNA [Presence] in Respiratory Detected No t-Detected specimen by DEANNA with probe detection (test code = 94422-5) Whether patient is employed in a healthcare setting (test code = 80803-5) Whether the patient has symptoms related to condition of interest (test code = 95388-0) Patient was hospitalized because of this condition (test code = 51377-9) Whether the patient was admitted to intensive care unit (ICU) for condition of interest (test code = 99759-6) Whether patient resides in a congregate care setting (test code = 40050-1)
[2021-07-19 17:33] LABS: Absolute Lymphocytes (CBC) 0.9 K/uL (0.7-4.9); Hematocrit 33.2 % (36.0-45.0); Lymphocytes % 11.8 % (15.3-44.8); MPV 9.6 fL (7.6-11.3); RBC Red Blood Cell Count 3.72 M/uL (3.86-4.86)
[2021-07-19 17:36] LABS: Protime INR 1.09
[2021-07-19 17:44] LABS: BUN Blood Urea Nitrogen 12 mg/dL (7-18); Bicarbonate 29 mmol/L (21-32); Glucose Level 99 mg/dL (74-106); Magnesium 2.5 mg/dL (1.8-2.4); Potassium 3.9 mmol/L (3.5-5.1); Sodium Level 138 mmol/L (136-145)
--- NOTE | 2021-07-19 19:01 | RAD REPORT ---
EXAM DESCRIPTION: US - Extrem Venous W Compress Nestor - 07/19/2021 6:11 pm CLINICAL HISTORY: Pain;Swelling COMPARISON: None. TECHNIQUE: Real-time sonographic evaluation of the bilateral lower extremity common femoral, superfi cial femoral, popliteal and posterior tibial veins was performed. FINDINGS: Normal compressibility, flow augmentation, phasic flow and spontaneous flow are identified in the left and right lower extremity common femoral, superficial femoral, popliteal and posterior t ibial veins. No intraluminal filling defects seen. Numerous varicose veins are seen left leg some which contain thrombus partially filling the lumen. Th rombus is relatively echogenic and may be chronic. IMPRESSION: No DVT in either lower extremity. 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
--- NOTE | 2021-07-19 19:32 | EDPHYS ---
Physician Documentation [facility] Name: Shanna Alonzo Age: 60 yrs Sex: Female : 1960 Arrival Date: 07/19/2021 Time: 16:25 Bed 10 Private MD: ED Physician Dinh More HPI: 07/19 16:44 This 60 yrs old Female presents to ER via Wheelchair with complaints of possible blood cp clot. 16:45 The patient presents with pain, that is acute, swelling, tenderness, erythema. cp 16:45 The complaints affect the left calf and left quadriceps. Onset: The symptoms/episode cp began/occurred 3 day(s) ago. Associated signs and symptoms: Pertinent positives: calf tenderness, Pertinent negatives fever, numbness, weakness. 16:45 Patient reports recent history of abdominal surgery for spontaneous intraabdominal cp bleeding that occurred about 2 weeks ago. Patient denies abdominal pain today, and/or shortness of breath. Historical: - Allergies: 16:28 Codeine; ll1 - PMHx: 16:28 None; ll1 - PSHx: 16:28 splenic aneurysm repair; ll1 - Immunization history:: Client reports having NOT received the Covid vaccine. Flu vaccine is not up to date. - Social history:: Smoking status: Patient denies any tobacco usage or history of. ROS: 16:50 Constitutional: Negative for body aches, chills, fever, poor PO intake. cp 16:50 Eyes: Negative for injury, pain, redness, and discharge. cp 16:50 Cardiovascular: Negative for chest pain, edema, palpitations. 16:50 Respiratory: Negative for cough, shortness of breath, wheezing. 16:50 Abdomen/GI: Negative for abdominal pain, nausea, vomiting, and diarrhea. 16:50 MS/extremity: Positive for erythema, pain, swelling, tenderness, of the left calf and left quadriceps, Negative for injury or acute deformity, decreased range of motion, paresthesias. 16:50 Neuro: Negative for altered mental status, dizziness, headache, weakness. 16:50 All other systems are negative. Exam: 16:55 Constitutional: The patient appears in no acute distress, alert, awake, non-toxic, well cp developed, well nourished. 16:55 Head/Face: Normocephalic, atraumatic. cp 16:55 Cardiovascular: Rate: normal, Edema: is not appreciated, JVD: is not appreciated. 16:55 Respiratory: the patient does not display signs of respiratory distress, Respirations: normal, no use of accessory muscles, no retractions, labored breathing, is not present, Breath sounds: are clear throughout, no decreased breath sounds, no stridor, no wheezing. 16:55 Abdomen/GI: Inspection: abdomen appears normal, Palpation: abdomen is soft and non-tender, in all quadrants. 16:55 Musculoskeletal/extremity: Extremities: grossly normal except: noted in the left quadriceps and left calf: pain, tenderness, area of streaking erythema lateral quadriceps, There is no evidence of decreased ROM, ROM: full active range of motion, in the left leg, Perfusion: the extremity is normally perfused throughout. 16:55 Neuro: Orientation: to person, place \T\ time. Mentation: is normal, Motor: moves all fours, strength is normal, Sensation: no obvious gross deficits. Vital Signs: 16:29 BP 129 / 96; Pulse 98; Resp 17; Temp 98.5; Pulse Ox 100% ; Weight 67.13 kg; Height 4 ll1 ft. 11 in. (149.86 cm); Pain 7/10; 18:21 BP 115 / 65; Pulse 89; Resp 16; Pulse Ox 98% on R/A; ll3 16:29 Body Mass Index 29.89 (67.13 kg, 149.86 cm) ll1 MDM: 16:43 Patient medically screened. cp 17:00 Differential diagnosis: cellulitis, DVT, abscess, superficial phlebitis. cp 19:30 Data reviewed: vital signs, nurses notes, lab test result(s), radiologic studies, cp ultrasound. 19:30 Counseling: I had a detailed discussion with the patient and/or guardian regarding: the cp historical points, exam findings, and any diagnostic results supporting the discharge/admit diagnosis, lab results, radiology results, the need for outpatient follow up, a family practitioner, to return to the emergency department if symptoms worsen or persist or if there are any questions or concerns that arise at home. ED course: VSS. Discussed results of labs and US negative for DVT but did show superficial vein thrombus. Recommend heat, warm compresses to area, OTC tylenol for pain and continued monitoring and f/u with PCP. Due to recent surgery recommend avoiding NSAIDs and/or aspirin unless consulting surgeon. Return to ED worsening pain and/or swelling. 07/19 16:44 Order name: CBC with Diff; Complete Time: 17:48 cp 07/19 17:48 Interpretation: Normal except: WBC 7.60; RBC 3.72; HGB 11.1; HCT 33.2; PLT 386; MPV cp 9.6; BRIANNE% 77.3; LYM% 11.8. 07/19 16:44 Order name: BMP; Complete Time: 17:48 cp 07/19 18:38 Interpretation: Normal except: CRE 0.53; CA 9.1. cp 07/19 16:43 Order name: US Extremity Venous W Compression Nestor; Complete Time: 19:11 cp 07/19 19:11 Interpretation: Report reviewed. cp 07/19 16:44 Order name: Magnesium; Complete Time: 17:48 cp 07/19 17:49 Interpretation: Abnormal: MG 2.5. cp 07/19 16:44 Order name: PT-INR; Complete Time: 17:48 cp 07/19 18:37 Interpretation: Reviewed. cp 07/19 16:44 Order name: Ptt, Activated; Complete Time: 17:48 cp Administered Medications: No medications were administered Disposition: 07/20 07:03 Co-signature as Attending Physician, Dinh More MD I agree with the assessment and rn plan of care. Attestation: The patient's history, exam findings, diagnostics, and a summary of any interventions or procedures was reviewed in detail with Mickey SLOAN. Disposition Summary: 07/19/21 19:31 Discharge Ordered Location: Home cp Problem: new cp Symptoms: have improved cp Condition: Stable cp Diagnosis - Phlebitis and thrombophlebitis of superficial vessels of left lower extremity cp Followup: cp - With: Private Physician - When: 2 - 3 days - Reason: Recheck today's complaints Discharge Instructions: - Discharge Summary Sheet cp - Phlebitis cp Forms: - Medication Reconciliation Form cp - Thank You Letter cp - Antibiotic Education cp - Prescription Opioid Use cp Prescriptions: - Cephalexin 500 mg Oral Capsule - take 1 capsule by ORAL route every 8 hours for 10 days; 30 capsule; Refills: 0, cp Product Selection Permitted Signatures: Dispatcher [employer] EDMS Dinh More MD MD rn Page, Corey, PA PA cp Lewis, Lynsay, RN RN ll1 Corrections: (The following items were deleted from the chart) 07/19 18:38 18:37 Normal except: CRE 0.53. cp cp
--- NOTE | 2021-07-19 19:32 | ER ---
Nurse's Notes [facility] Name: Shanna Alonzo Age: 60 yrs Sex: Female : 1960 Arrival Date: 07/19/2021 Time: 16:25 Bed 10 Private MD: Diagnosis: Phlebitis and thrombophlebitis of superficial vessels of left lower extremity Presentation: 07/19 16:29 Chief complaint: Patient states: L leg prominent veins for 20+ years. 3 days ago it ll1 started to get tender, red, discolored along 3 spots of the vein. Sites are hot to touch. No fever. Coronavirus screen: Vaccine status: Patient reports being unvaccinated. Client denies travel out of the [place] in the last 14 days. At this time, the client does not indicate any symptoms associated with coronavirus-19. Ebola Screen: Patient denies travel to an Ebola-affected area in the 21 days before illness onset. Initial Sepsis Screen: Does the patient meet any 2 criteria? No. Patient's initial sepsis screen is negative. Does the patient have a suspected source of infection? Yes: Skin breakdown/wound. Risk Assessment: Do you want to hurt yourself or someone else? Patient reports no desire to harm self or others. Onset of symptoms was July 17, 2021. 16:29 Method Of Arrival: Wheelchair ll1 16:29 Acuity: GI 3 ll1 Historical: - Allergies: 16:28 Codeine; ll1 - PMHx: 16:28 None; ll1 - PSHx: 16:28 splenic aneurysm repair; ll1 - Immunization history:: Client reports having NOT received the Covid vaccine. Flu vaccine is not up to date. - Social history:: Smoking status: Patient denies any tobacco usage or history of. Screenin:56 Abuse screen: Denies threats or abuse. Nutritional screening: No deficits noted. ll3 Tuberculosis screening: No symptoms or risk factors identified. 18:22 Fall Risk IV access (20 points). Total Pretty Fall Scale indicates No Risk (0-24 pts). ll3 Assessment: 16:56 General: Appears in no apparent distress. uncomfortable, Behavior is calm, cooperative. ll3 Pain: Complains of pain in left quadriceps Pain currently is 7 out of 10 on a pain scale. Pain began the 6th Is continuous. Neuro: Level of Consciousness is awake, alert, obeys commands, Oriented to person, place, time, situation. Cardiovascular: Patient's skin is warm and dry. Respiratory: Respiratory effort is even, unlabored, Respiratory pattern is regular, symmetrical. Derm: Skin is red, Skin temperature is warm Bruising that is dark purple, on left quadriceps. 18:21 Reassessment: Patient appears in no apparent distress at this time. No changes from ll3 previously documented assessment. Patient and/or family updated on plan of care and expected duration. Pain level reassessed. Patient is alert, oriented x 3, equal unlabored respirations, skin warm/dry/pink. 19:48 Reassessment: Patient is alert, oriented x 3, equal unlabored respirations, skin bb warm/dry/pink. pt verbalized understanding of and agrees to plan of care discharge instructions given pt assisted to exit via wheelchair accompanied by family. Vital Signs: 16:29 BP 129 / 96; Pulse 98; Resp 17; Temp 98.5; Pulse Ox 100% ; Weight 67.13 kg; Height 4 ll1 ft. 11 in. (149.86 cm); Pain 7/10; 18:21 BP 115 / 65; Pulse 89; Resp 16; Pulse Ox 98% on R/A; ll3 16:29 Body Mass Index 29.89 (67.13 kg, 149.86 cm) ll1 ED Course: 16:25 Patient arrived in ED. am2 16:28 Arm band placed on. ll1 16:31 Triage completed. ll1 16:36 Mickey Ellsworth PA is PHCP. cp 16:36 Dinh More MD is Attending Physician. cp 16:51 Eliud Leos, NIC is Primary Nurse. ll3 16:56 Patient has correct armband on for positive identification. Call light in reach. Side ll3 rails up X 1. Adult w/ patient. 18:11 US Extremity Venous W Compression Nestor In Process Unspecified. EDMS 19:48 No provider procedures requiring assistance completed. IV discontinued, intact, bb bleeding controlled, No redness/swelling at site. Pressure dressing applied. Administered Medications: No medications were administered Outcome: 19:31 Discharge ordered by . cp 19:48 Discharged to home via wheelchair, with family. bb 19:48 Condition: stable 19:48 Discharge instructions given to patient, Instructed on discharge instructions, follow up and referral plans. medication usage, Demonstrated understanding of instructions, follow-up care, medications, Prescriptions given X 1. 19:50 Patient left the ED. bb Signatures: Dispatcher [employer] EDChelsea Hong RN RN bb Mickey Ellsworth PA PA cp Moreno, Amanda am2 Lewis, Lynsay, RN RN ll1 Eliud Leos RN RN ll3
== END 2021-07-19 19:50 | disposition home or self-care (01) ==
LOC: ER 16:22
DX: I80.02 Phlebitis and thrombophlebitis of superficial vessels of left lower extremity (principal); Z88.5 Allergy status to narcotic agent
CPT/HCPCS: 36415; 80048; 83735; 85025; 85610; 85730; 93970; 99283